=== PATIENT | male | born 1970 | race Caucasian/White ===

== ENCOUNTER 2016-07-01 18:33 | Emergency (ER) | payer BC ==
[~2016-07-01] VITALS: Ht 182.9 cm; Wt 121.0 kg
--- OUTSIDE RECORDS SUMMARY | 2016-07-01 18:38 | XMS REPORT | Summary of Care ---
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 Unavailable Unavailable Ashish Jacques PP Unavailable Unavailable Unavailable Functional Status Functional Status Health Issues Name Dates Details Functional status health issues are not documented Status: Cognitive Status Health Issues Name Dates Details Cognitive status health issues are not documented Status: Problems Name Dates Details Umbilical hernia (553.1, K42.9) Status: Active Hypertension (401.9, I10) Status: Active Colitis (558.9, K52.9) Status: Active Situational stress (V62.89, Z65.8) Status: Active Anxiety disorder (300.00, F41.9) Status: Active Pain, upper back (724.5, M54.6) Status: Active Chest pain (786.50, R07.9) Status: Active Medications Name Dates Details Escitalopram Oxalate 20 MG Oral Tablet 1 pill daily Quantity: 90 Refills: 3 Ashish Jacques M.D. Started 25-Jan-2014 ActiveALPRAZolam 0.5 MG Oral Tablet TAKE 1/2 TO 1 TABLET BY MOUTH EVERY 6 HOURS NEEDED FOR ANXIETY Quantity: 30 Refills: 0 Ashish Jacques M.D. Started 25-Jan-2014 Active Allergies and Adverse Reactions Name Dates Details No Known Drug Allergies Status: Active Latex Status: Denied Procedures Procedure Dates Details History of Colonoscopy (Fiberoptic) Completed:21-Oct-2012 History of Umbilical Hernia Repair - Over Age 5 Completed:09-Jan-2013 Procedures not documented Immunization Name Dates Details Immunizations not documented Family History Mother Name Dates Details Family history of Diabetes Mellitus (V18.0) Status: Active Father Name Dates Details Family history of Bladder Cancer (V16.52) Status: Active Family history of Cardiomyopathy Status: Active Brother Name Dates Details Family history of Diabetes Mellitus (V18.0) Status: Active Family history of Diabetes Mellitus (V18.0) Status: Active Social History Name Dates Details Smoking StatusSmoker. current status unknown Vital Signs Date Test Result Details 26-May-2014 14:06 BP Systolic 134 mm[Hg] Status: BP Diastolic 87 mm[Hg] Status: Heart Rate 84 /min Status: Temperature 99 f Status: O2 SAT 98 % Status: Results Date Description Value Details 26-May-2014 15:03 XRay CHEST-PA & LAT Comments: Exam Date: 14: 42Dictation Date: 15:03 X CHEST PA & LAT (Better) Plan of Care Planned Observations Name Dates Details Planned Goals not documented Goal Planned Encounters Appointment; Provider: Samuel Raymond On 09-Jan-2013 11:30 Instructions Instructions not documented Encounters Appointment; Rhonda Larios Encounter Diagnosis: Problem not documented On 26-May-2014 14:15 Appointment; Ashish Jacques Encounter Diagnosis: Problem not documented On 16-Mar-2014 10:15 Appointment; Ashish Jacques Encounter Diagnosis: Problem not documented On 25-Jan-2014 10:45 Appointment; Ashish Jacques Encounter Diagnosis: Problem not documented On 19-Nov-2013 10:15 Appointment; Ashish Jacques Encounter Diagnosis: Problem not documented On 14:45 Appointment; Ashish Jacques Encounter Diagnosis: Problem not documented On 30-Jul-2013 09:45 Appointment; Ashish Jacques Encounter Diagnosis: Problem not documented On 15-Jul-2013 10:15 Appointment; Samuel Raymond Encounter Diagnosis: Problem not documented On 15-Jul-2013 10:00 Appointment; Samuel Raymond Encounter Diagnosis: Problem not documented On 20-Jan-2013 10:30 Appointment; Samuel Raymond Encounter Diagnosis: Problem not documented On 19-Dec-2012 09:30 Appointment; Rhianna Medina Encounter Diagnosis: Problem not documented On 21-Oct-2012 09:30 Appointment; Rama Rush Encounter Diagnosis: Problem not documented On 21-Oct-2012 07:30 Appointment; Ashish Jacques Encounter Diagnosis: Problem not documented On 10:45
[2016-07-01] MEDS ORDERED: SODIUM CHLORIDE FLUSH 10 ML SYR IV PRN (19:15)
[2016-07-01] MEDS ORDERED: GI COCKTAIL 55 ML UDC PO ONE (19:15)
[2016-07-01] MEDS ORDERED: ONDANSETRON 2 MG/ML (Z0FRAN) 2 ML VIAL IV ONE (19:15)
[2016-07-01] MEDS ORDERED: SODIUM CHLORIDE FLUSH 3 ML SYR IV PRN (19:15)
[2016-07-01] MEDS ORDERED: MAG HYDROX/AL HYDROX/SIMETH 400-400-40/5 ML (MAG-AL PLUS XS) 30 ML UDC ONE (19:51)
[2016-07-01] MEDS ORDERED: LIDOCAINE 2% VISCOUS 20ML UDC PO ONE (19:52)
[2016-07-01] MEDS ORDERED: BELLADONNA/PHENOBARBITAL ELIXIR (DONNATAL) 10 ML UDC ONE (19:52)
--- NOTE | 2016-07-01 20:22 | Diagnostic Imaging Report ---
INDICATION: Abdominal pain with radiation to the chest times one and half hours. TECHNIQUE: Single view chest with supine and upright radiographs of the abdomen. CORRELATION STUDY: None FINDINGS: Heart size is mildly enlarged prevascular within normal limits. Supine and upright radiographs of the abdomen demonstrates the bowel gas pattern to be unremarkable and without evidence for obstruction. No free air is seen under the diaphragms. Mild amount of retained fecal material. No pathologic intraabdominal calcifications. IMPRESSION: 1. Negative for acute cardiopulmonary abnormality. 2. Unremarkable appearing bowel gas pattern. Dictated by: Dictated on workstation # [id number]
[2016-07-01 20:50] LABS: BASOPHILS % (AUTO) 0 % (0-2); EOSINOPHILS # (AUTO) 0.1 10^3uL; EOSINOPHILS % (AUTO) 1 % (0-4); LYMPHOCYTES # (AUTO) 1.7 X10^3; MEAN CORPUSCULAR HEMOGLOBIN 29.7 PG (26.0-34.0); MEAN CORPUSCULAR HGB CONC 34.1 g/dL (31.0-37.0); MEAN CORPUSCULAR VOLUME 87 FL (80-100); MEAN PLATELET VOLUME 10.8 FL (6.0-9.5); MONOCYTES # (AUTO) 0.5 X10^3; MONOCYTES % (AUTO) 5 % (3-11); NEUTROPHILS # (AUTO) 8.7 X10^3; NEUTROPHILS % (AUTO) 79 % (51-67); PLATELET COUNT 278 10^3uL (150-450); WHITE BLOOD COUNT 10.99 10^3uL (4.0-11.0)
[2016-07-01 20:51] LABS: BILIRUBIN,URINE Negative (Negative); CLARITY,URINE Clear; COLOR,URINE Yellow; GLUCOSE, URINE (UA) Negative (Negative); LEUKOCYTE ESTERASE ,URINE Negative (Negative); PH,URINE 5.5 (5.0 - 8.0); UROBILINOGEN,URINE 0.2 mg/dL (0.2-1.0)
[2016-07-01 20:58] LABS: ANION GAP 16.1 MEQ/L (3-15); BUN/CREATININE RATIO 16 (10-20)
[2016-07-01 20:59] LABS: ALBUMIN 4.4 g/dL (3.4-5.0); ALKALINE PHOSPHATASE 80 U/L (38-126); AMYLASE* 79 U/L (25-115); CALCULATED IONIZED CALCIUM 3.9 mg/dL (3.8-4.6); CREATINE KINASE 122 U/L (55-170); LIPASE* 108 U/L (23-300); TOTAL PROTEIN 7.6 g/dL (6.4-8.5)
[2016-07-01 22:14] VITALS: BP 126/88
== END 2016-07-01 22:15 | disposition home or self-care (01) ==
LOC: ED 18:36
DX: R10.13 Epigastric pain (principal); F17.210 Nicotine dependence, cigarettes, uncomplicated
CPT/HCPCS: 36415; 74022; 80053; 81003; 82150; 82550; 82553; 83690; 84484; 85025; 86140; 93005; 96361; 96374; 99284; J2405; J7030; 93010